=== PATIENT | female | born 1995 | race Caucasian/White ===

== ENCOUNTER 2019-05-08 00:39 | Emergency (ER) | payer OTHER ==
--- NOTE | 2019-05-08 02:37 | ED ---
Head Injury - HPI Summary HPI Summary: Patient is a 23 y/o F presenting to [facility] with complaints of head and neck injury and laceration to her right ear. She states that around 0030 05/08/19, the patient had fallen out of bed and struck her head against a nearby desk. Patient denies LOC, vision changes and nausea. She does endorse BRANNON of 01/24 and notes that she has abrasions to the right of her neck. Patient states that she had two drinks of wine tonight but denies substance usage. Last tetanus was either 2010 or 2011. Patient reports LNMP was 3 months ago. She was formerly on control pills but stopped taking them 3 weeks ago due to side effects she was experiencing. PMHx of asthma is noted. Home medications and allergies are reviewed. 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 - History Of Current Complaint Chief Complaint: EDHeadInjury Stated Complaint: CUT ON EAR PER PT Time Seen by Provider: 05/08/19 02:22 Hx Obtained From: Patient Mechanism Of Injury: Fall From Height Of: - bed Onset/Duration: Started Hours Ago, Still Present Onset of Pain: Hours, Prior to Arrival Severity Currently: Severe Pain Intensity: 7 Pain Scale Used: 0-10 Numeric Location: Discrete At: - head, neck Associated Signs And Symptoms: Neck Pain, Headache, Other: - negative - LOC, nausea, visual changes - Allergies/Home Medications Allergies/Adverse Reactions: Allergies Allergy/AdvReac Type Severity Reaction Status Date / Time animal dander Allergy Difficulty Verified 05/08/19 00:49 Breathing kiwi Allergy Rash Verified 05/08/19 00:49 nefopam Allergy Anaphylatic Verified 05/08/19 00:49 Shock Home Medications: Home Medications Albuterol HFA INHALER* [Ventolin HFA Inhaler*] 1 puff INH Q6H PRN 05/08/19 [ History Confirmed 05/08/19] PMH/Surg Hx/FS Hx/Imm Hx Respiratory History: Reports: Hx Asthma Sensory History: Denies: Hx Legally Blind, Hx Deafness Opthamlomology History: Denies: Hx Legally Blind EENT History: Denies: Hx Deafness Infectious Disease History: No Infectious Disease History: Denies: Traveled Outside the [place] in Last 30 Days - Family History Known Family History: Negative: Blood Disorder - Social History Alcohol Use: Weekly Alcohol Amount: 2x/week Substance Use Type: Reports: None Smoking Status (MU): Light Every Day Tobacco Smoker Review of Systems Eyes: Other - negative - visual changes Negative: Nausea Musculoskeletal: Other - positive - neck pain, neck injury Skin: Other - positive - laceration to right ear, abrasion to back of neck Neurological: Other - positive - head injury Positive: Headache. Negative: Syncope - no LOC All Other Systems Reviewed And Are Negative: Yes Physical Exam - Summary Physical Exam Summary: General: Well-developed, Well-nourished female. No acute distress. HEENT: Normocephalic, Atraumatic. Eyes: Conjuctiva normal, PERRL. Ears: TMs within normal limits. There is a 1.2 cm laceration around the right ear lobe Nares: (-) discharge, (-) erythema. Oropharynx: Clear, mucous membranes moist, (-) exudates. Neck: There is a superficial abrasion of the right lower neck. Soft, FROM, (-) lymphadenopathy, (-) thyromegaly, (-) JVD. Cardiovascular: Normal sinus rhythm, (-) murmur. Lungs: Clear to auscultation bilaterally (-) wheezes, (-) rales, (-) rhonchi. Abdomen: Soft, non-tender, non-distended, (-) organomegaly, normal bowel sounds. Back: (-) CVA tenderness Extremities: No edema. Skin: Warm, dry, (-) rash. Neuro: Alert and oriented x3, no focal deficits. Psychiatric: Mood normal, affect normal. Triage Information Reviewed: Yes Vital Signs On Initial Exam: Initial Vitals Temp Pulse Resp BP Pulse Ox 98.1 F 93 15 138/72 97 05/08/19 00:46 05/08/19 00:46 05/08/19 00:46 05/08/19 00:46 05/08/19 00:46 Vital Signs Reviewed: Yes Procedures - Procedure Summary Procedure Summary: Repair of 1.2 cm linear laceration of the right earlobe was done using 7 Ethilon sutures in a single layer, uninterrupted pattern. Lidocaine 1% without epi was used as local anesthesia. Layer was closed, there were no complications during the procedure. - Sedation Patient Received Moderate/Deep Sedation with Procedure: No - Laceration/Wound Repair 1 Location: head - right earlobe Description: Linear Anesthesia: Local, 1.0%, Lido Length, Depth and Shape: 1.2 cm Laceration/Wound Explored: clean Closure: Single Layer Suture Type: Nylon - ethilon Number of Sutures: 7 Layer Closure?: Yes Sterile Dressing Applied?: Yes Diagnostics - Vital Signs Vital Signs Temp Pulse Resp BP Pulse Ox 05/08/19 00:46 98.1 F 93 15 138/72 97 - Laboratory Lab Statement: Any lab studies that have been ordered have been reviewed, and results considered in the medical decision making process. Head Injury Course/Dx Course Of Treatment: 23-year-old female with fall and trauma to the right ear. Patient sustained laceration to the inferior ear lobe. Repaired with 6-0 Ethilon. Patient tolerated well. Advised recheck in 24-48 hours. Sutures out in 7-10 days. Follow-up sooner for any worsening symptoms. Advised antibiotic ointment to the area. Clean with soap and water after 24 hours. - Diagnoses Provider Diagnoses: Laceration of right ear, Fall from bed Discharge ED - Sign-Out/Discharge Documenting (check all that apply): Patient Departure - discharge - Discharge Plan Condition: Stable Disposition: HOME Patient Education Materials: Care For Your Stitches (ED), Laceration (ED) Referrals: [facility] [Outside] Additional Instructions: HAVE YOUR SUTURES RE-CHECKED IN 24 TO 48 HOURS. HAVE THEM REMOVED IN 7-10 DAYS. RETURN TO ED FOR ANY NEW OR CONCERNING SYMPTOMS. - Billing Disposition and Condition Condition: STABLE Disposition: Home - Attestation Statements Document Initiated by Austynibe: Yes Documenting Scribe: JONES VELAZQUEZ Provider For Whom Shadi is Documenting (Include Credential): RADHA KIDD MD Scribe Attestation: JONES Gardiner, scribed for RADHA KIDD MD on 05/08/19 at 0549. Scribe Documentation Reviewed: Yes Provider Attestation: The documentation as recorded by the JONES lawson accurately reflects the service I personally performed and the decisions made by me, RADHA KIDD MD Status of Scribe Document: Viewed
[2019-05-08] MEDS ORDERED: Bacitracin OINTMENT* 0.5% 0.5 oz TUBE TOPICAL ONE (03:27)
[2019-05-08] MEDS ORDERED: Albuterol HFA INHALER* 8 gm MDI INH PRN (03:27)
[2019-05-08] MEDS ORDERED: Tetan/Diph/Pertus SYR(Tdap)* 0.5 ML SYR(BOOSTRIX) use SYR contains LATEX IM ONE (03:27)
[2019-05-08 03:53] VITALS: BP 112/70
== END 2019-05-08 03:52 | disposition home or self-care (01) ==
LOC: ED 00:39
DX: S01.311A Laceration without foreign body of right ear, initial encounter (principal); Z23 Encounter for immunization; W06.XXXA Fall from bed, initial encounter; Y92.003 Bedroom of unspecified non-institutional (private) residence as the place of occurrence of the external cause; J45.909 Unspecified asthma, uncomplicated; F17.200 Nicotine dependence, unspecified, uncomplicated; Z88.8 Allergy status to other drugs, medicaments and biological substances
CPT/HCPCS: 12011; 90471; 90715; 99283; A9270-GY